=== PATIENT | male | born 1965 ===

== ENCOUNTER 2017-09-24 00:55 | Day surgery (SDC) | payer BC, OTHER ==
[~2017-09-24] VITALS: Ht 185.4 cm; Wt 119.3 kg
[~2017-09-24 00:55] MED LIST: IBUP600T22 PO
[2017-09-24 13:57] VITALS: BP 154/98
[2017-09-24] MEDS ORDERED: CLINDAMYCIN(*) 900 MG/NS 50 ML 50 ML IVPB ONE (14:20)
[2017-09-24] MEDS ORDERED: LIDOCAINE/SOD BICARB 8.4% SYR ID ONE (14:20)
[2017-09-24] MEDS ORDERED: FAMOTIDINE 20 MG TAB PO ONE (14:20)
[2017-09-24] MEDS ORDERED: NORMOSOL R SOLN(*) 1000 ML BAG 1,000 ML IV PRN (14:20)
[2017-09-24] MEDS ORDERED: MIDAZOLAM 2 MG/2 ML VIAL IVP PRN (14:20)
[2017-09-24] MEDS ORDERED: DEXAMETHASONE SOD PHOS 10MG/ML ONE (14:21)
[2017-09-24] MEDS ORDERED: ONDANSETRON 4 MG/2 ML VIAL ONE (14:21)
[2017-09-24] MEDS ORDERED: LIDOCAINE MPF 1% 5 ML VIAL ONE (14:21)
[2017-09-24] MEDS ORDERED: ROCURONIUM BROM 10 MG/ML 10 ML ONE (14:21)
[2017-09-24] MEDS ORDERED: PROPOFOL EMUL(*) 10MG/ML 20 ML 20 ML ONE (14:21)
[2017-09-24] MEDS ORDERED: MIDAZOLAM 2 MG/2 ML VIAL ONE (14:21)
[2017-09-24] MEDS ORDERED: fentaNYL CITR 100 MCG/2 ML AMP ONE ×2 (14:21→17:40)
[2017-09-24] MEDS ORDERED: ROPIVACAINE 0.2% 20 ML VIAL ONE ×2 (14:58→16:40)
[2017-09-24] MEDS ORDERED: ESMOLOL 10 MG/ML 10ML SDV ONE (15:46)
[2017-09-24] MEDS ORDERED: LABETALOL HCL 100 MG/20ML VIAL ONE (15:51)
[2017-09-24] MEDS ORDERED: DEXAMETHASONE SOD 4 MG/ML VIAL ONE ×2 (16:23→16:26)
[2017-09-24] MEDS ORDERED: DEXAMETHASONE SOD 20MG/5 ML VL ONE (16:24)
[2017-09-24] MEDS ORDERED: SUGAMMADEX SOD 200 MG/2 ML SDV ONE (16:32)
[2017-09-24] MEDS ORDERED: LOR5/325 PO (17:14)
[2017-09-24] MEDS ORDERED: DIA5 PO (17:15)
[2017-09-24] MEDS ORDERED: DOCU240C84 PO (17:16)
[2017-09-24] MEDS ORDERED: ALBUTEROL/IPRATROPIUM 3 ML NEB NEB ONE (17:25)
[2017-09-24 18:15] VITALS: BP 101/68
[2017-09-24] MEDS ORDERED: APAP/HYDROCODONE 325/5 TAB ONE (18:24)
[2017-09-24 18:30] VITALS: BP 120/80
[2017-09-24 18:45] VITALS: BP 113/90
[2017-09-24 18:53] VITALS: BP 92/77
[2017-09-24] MEDS ORDERED: DIAZEPAM 5 MG TAB ONE (19:15)
--- NOTE | 2017-09-25 04:24 | OPERATIVE REPORT 1 ---
EVENT DATE: September 24, 2017 SURGEON: Pete De La Cruz MD ANESTHESIOLOGIST: Logan Dunn MD ANESTHESIA: General endotracheal. CONTACT CENTER DIRECTOR: Billy Jimenez MD PREOPERATIVE DIAGNOSIS L5-S1 stenosis with L5-S1 herniated nucleus pulposus. POSTOPERATIVE DIAGNOSIS L5-S1 stenosis with L5-S1 herniated nucleus pulposus. PROCEDURE PERFORMED 1. L5-S1 laminectomy. 2. L5-S1 discectomy. 3. Removal of right wrist sutures. IV FLUIDS 1700 mL. ESTIMATED BLOOD LOSS 50 mL. IMPLANTS None. SPECIMENS None. DRAINS None. COMPLICATIONS None. DISPOSITION Post anesthesia care unit. INDICATION FOR SURGERY Mr. Zimmerman is a 52-year-old male who presented to my clinic with a long history of bilateral radiating pain, numbness and tingling down the posterior buttock, posterior thigh, posterior calf. When he first came to me, he had a known disk herniation at L5-S1. He had multiple injections with no long-term relief, and had also failed physical therapy, medications and activity modification. His physical examination was significant for a positive straight leg raising maneuver bilaterally, giving pain, numbness and tingling in an S1 distribution. His strength and sensation were 5/5 throughout, and deep tendon reflexes were normal. His imaging studies showed a large broad-based disk bulge that was more midline than paracentral at the L5-S1 level, and that coupled with facet hypertrophy and ligamentum flavum thickening from degenerative disk disease resulted in moderate to severe stenosis at that level with contact and displacement of the S1 nerve roots bilaterally. Secondary to ongoing symptoms and failure of nonsurgical care, Mr. Zimmerman was offered and elected to undergo L5-S1 laminectomy and discectomy. Prior to this procedure, he had undergone a right carpal tunnel release, and I spoke with the operating surgeon from that procedure, Dr. Mcqueen, as Mr. Zimmerman had been previously instructed to have those sutures removed the day after this surgery. We agreed to go ahead and take the sutures out during the course of this surgery. Prior to surgery, I explained in detail to the patient the possible risks of surgery. This included the risk of bleeding, infection, damage to surrounding structures, persistent and/or worsening pain, nerve root injury, spinal fluid leak, meningitis, , blindness, sexual dysfunction, autonomic nervous system dysfunction and other unforeseen medical and surgical complications. An understanding that spinal surgery is more predictive at improving extremity discomfort than axial spine pain was stressed. DESCRIPTION OF PROCEDURE On the day of surgery, the patient was met in the preoperative hold area, and all questions were answered. The operative site was identified and marked by myself. The patient was brought in good condition to the operating room, and after succumbing to anesthesia, was placed in the prone position on a Mario Alberto table. All bony protuberances and soft tissues were well padded in the standard fashion. Care was taken to maintain appropriate perfusion pressures during anesthesia. Preoperative antibiotics were administered according to the appropriate timing schedule. At the conclusion of the procedure, sponge and needle count were correct x two. Final time out was undertaken by members of the operating team to confirm correct patient, correct levels and correct surgery. A spinal needle was placed on the spinous process of L5 and a lateral radiogram was obtained to confirm correct position. The patient was then prepped and draped in the standard sterile orthopedic fashion, and an incision was made over the intended surgical levels. Sharp dissection was taken down to the dorsolumbar fascia and the spinous processes of L5 and S1. The fascia was incised, and soft tissues were elevated off the posterior elements in a subperiosteal manner. A self- retaining retractor was placed. The spinous process of L5 was removed using a Leksell rongeur. It was thinned down the midline utilizing a combination of a Leksell rongeur and a high-speed deya. The canal was entered using a Servin curetted to undermine the superior insertion of the ligamentum flavum from the inferior aspect of the L5 lamina. A Smita elevator was used to carefully separate the dura from any surrounding bony or soft tissue adhesions prior to use of the Kerrison punch. A midline decompression was performed with the use of a 4-0 Kerrison rongeur. Once this was completed, bilateral lateral recess decompressions were performed. At this point, the shoulders of the S1 nerve roots were mobilized bilaterally and retracted medially to expose the L5-S1 disk space. A very large broad-based bulge was identified and removed in fragments from beneath the fibrous capsule using pituitary rongeurs. Again this was performed bilaterally, lending significant freedom to the S1 nerve roots. Limited foraminotomies of the S1 foramen were then performed bilaterally. At the conclusion of the decompression, the nerve roots were easily mobilized, and no further compression was present. The wound was irrigated with copious sterile saline solution, and all bleeding was stopped. 4 mg of Decadron was infused around the nerve roots bilaterally at L5-S1. The wound was then closed in layers using interrupted sutures for the deep fascia, interrupted sutures for the superficial fascia, and a running subcuticular skin stitch. Sponge and needle counts were correct x two. After applying a sterile dressing and flipping the patient onto the gurney, the sutures were removed from the right wrist. POSTOPERATIVE CARE PLAN Mr. Zimmerman will be allowed to be discharged home once he meets discharge criteria. He will follow up with me in two weeks time for wound check and examination. ALONDRA
--- NOTE | 2017-09-25 09:28 | RADIOLOGY IMAGING REPORT ---
FACILITY: [facility] PATIENT NAME: Rock Zimmerman : 1965 MR: [id number] V: [id number] EXAM DATE: ORDERING PHYSICIAN: NATASHA WYATT TECHNOLOGIST: Location: [facility] [place] Patient: Rock Zimmerman : 1965 Visit/Account:[id number] Date of Sevice: 09/24/2017 LUMBAR SPINE 1 VIEW HISTORY: L5-S1 DISC HERNIATION COMPARISON: X-ray examination lumbar spine from 09/04/2017. MRI lumbar spine from September 18, 2017. FINDINGS: The lateral view of the lumbar spine is submitted. Stable narrowing is noted at L5-S1. Lateral view d emonstrates 2 metallic needles in a posterior approach L4-L5 and L5-S1. IMPRESSION: Lateral radiograph as above. Report Dictated By: Serafin Cheek MD at 09/25/2017 9:23 AM Report E-Signed By: Serafin Cheek MD at 09/25/2017 9:24 AM WSN:[id number]
== END 2017-09-24 18:15 | disposition home or self-care (01) ==
LOC: OR 00:55
PROVIDERS: ATTEND Orthopaedic Surgery
DX: M48.07 Spinal stenosis, lumbosacral region (principal); M51.27 Other intervertebral disc displacement, lumbosacral region
CPT/HCPCS: 36415; 63030; 72020; 86850; 86900; 86901; 94640; 94667; J1100; J2001; J2250; J2405; J2704; J2795; J3010; J3490; J7620